=== PATIENT | female | born 1970 | race Caucasian/White ===

== ENCOUNTER → 2020-04-29 17:04 | Outpatient (CLI) | payer OTHER, SELFPAY ==
--- NOTE | ~2020-04-29 | MM_ITS ---
EXAMINATION: MM screening [facility] BI w [facility]ley HISTORY: Screening mammogram TECHNIQUE: Craniocaudal and mediolateral oblique 3-D tomosynthesis images were obtained and synthetic 2-D images were generated. CAD analysis was submitted and interpreted. COMPARISON: 09/12/2018, 09/05/2018 BREAST PARENCHYMAL COMPOSITION: There are scattered areas of fibroglandular density. FINDINGS: There is no evidence of suspicious mass, calcification, or architectural distortion to sugg est malignancy in either breast. There has been no suspicious interval change. IMPRESSION: 1. No mammographic evidence of malignancy. 2. Recommend routine screening mammography in one year. BI-RADS Category 1: Negative Reviewed, dictated and finalized at location A.
== END ==
PROVIDERS: PCP Family Medicine; Visit Provider Physician Assistant
DX: Z12.31 Encounter for screening mammogram for malignant neoplasm of breast (principal)
CPT/HCPCS: 77063; 77067

== ENCOUNTER → 2020-05-24 08:01 | Outpatient (CLI) | payer OTHER, SELFPAY ==
--- NOTE | ~2020-05-24 | US_ITS ---
EXAMINATION: US abdomen limited DATE: 05/24/2020 08:18 INDICATION: Abnormal levels of other serum enzymes TECHNIQUE: Multiple grayscale and Doppler ultrasound images of the abdomen were obtained. COMPARISON: CT, 05/04/2014 FINDINGS: The head and body of the pancreas are normal. The pancreatic tail is obscured by bowel gas. The liver demonstrates increased echogenicity, heterogenous echotexture, and decreased through trans mission. No surface nodularity. Normal hepatopetal flow in the main portal vein. The gallbladder is s urgically absent. The normal postcholecystectomy common bile duct measures 7 mm. IMPRESSION: 1. Diffuse hepatic steatosis Reviewed, dictated and finalized at location B.
== END ==
PROVIDERS: PCP Family Medicine; Visit Provider Family Medicine
DX: R74.8 Abnormal levels of other serum enzymes (principal); K76.0 Fatty (change of) liver, not elsewhere classified
CPT/HCPCS: 76705

== ENCOUNTER 2021-04-27 13:10 | Emergency (ER) | payer OTHER, SELFPAY ==
--- NOTE | 2021-04-27 13:34 | ED.URI ---
HPI - URI/Sore Throat General Chief Complaint: Upper Respiratory Infection Stated Complaint: bilateral ear pain,nasal congestion Time Seen by Provider: 04/27/21 14:00 Source: patient and RN notes reviewed Mode of arrival: ambulatory Limitations: no limitations History of Present Illness HPI Narrative: 50-year-old female presents the concern for nasal congestion, rhinorrhea. She reports bilateral ear pain. She reports that been occurring since or Wednesday. She reports she is taking zssq-eth-njdydsl medications without relief. She reports occasional cough. She denies fever, body aches, sweats. MD elicited complaint: rhinorrhea, nasal congestion and other (ear pain) Related Data Home Medications Medication Instructions Recorded Confirmed aspirin 81 mg tablet,delayed 81 mg PO DAILY 12/23/18 09/16/20 release cholecalciferol (vitamin D3) 50 50 mcg PO DAILY 12/23/18 09/16/20 mcg (2,000 unit) capsule multivitamin 1 tablet PO DAILY 12/23/18 09/16/20 Allergies Allergy/AdvReac Type Severity Reaction Status Date / Time guaifenesin Allergy Unknown blood Verified 09/16/20 16:08 pressure DEXTROMETHORPHAN HBR Allergy Mild reaction Uncoded 09/16/20 16:08 MUCINEX Allergy Mild hand Uncoded 09/16/20 16:08 swelling and itch PSEUDOEPHEDRINE HCL Allergy Mild blood Uncoded 09/16/20 16:08 pressure Review of Systems Review of Systems: CONSTITUTIONAL: Denies malaise, chills, sweats, or fever. EYES: Denies visual changes, redness, or discharge. ENT: Reports rhinorrhea, congestion, sinus pain, otalgia CARDIOVASCULAR: Denies chest pain, palpitations, or edema. RESPIRATORY: Reports cough. Denies dyspnea. GASTROINTESTINAL: Denies abdominal pain, nausea, vomiting, diarrhea SKIN: Denies rash or itching. MUSCULOSKELETAL: Denies myalgia. NEUROLOGIC: Denies headache. All systems reviewed & are unremarkable except as noted in HPI and below PMFSH Past Medical History Medical History Anxiety disorder, unspecified Benign essential HTN Benign thyroid cyst History of miscarriage Surgical History Surgical History History of laparoscopy Hx laparoscopic cholecystectomy Family History Family History Father Hypertension Family history of diabetes mellitus in first degree relative Mother Hypertension Breast cancer Sibling Hypertension Prediabetes Social History Social History (Updated 09/16/20 @ 16:10 by Ketty Humphrey) Social History: Smoking packs per day: 0.5 Smoking cigarettes per day: 10.0 Years smoked: 15 Smoking pack-years: 7.50 Smoking status: Current every day smoker Tobacco type: cigarettes Second hand tobacco smoke exposure: Yes Alcohol intake: current Alcohol use details: rarely Substance use: never Substance use type: does not use Gender identity (if verbalized by the patient): Female Sexual Orientation (if Verbalized by the Patient): Straight or Heterosexual Comments At time of signature, agree with nursing past medical, surgical, social and family history. There is no relevant family history pertinent to the presenting complaint Exam Narrative: GENERAL: Well-appearing, well-nourished, and in no acute distress. HEAD: Normocephalic EYES: PERRLA, conjunctivae clear ENT: Nares clear, turbinates edematous and erythematous, clear discharge. Mucous membranes moist. TM erythematous and bulging; no tragal tenderness. Oropharynx not erythematous without lesions. Tonsils not enlarged and without exudate, no drooling, no hoarseness, no trismus, uvula midline. NECK: Supple. No lymphadenopathy CHEST: Clear to auscultation, breath sounds equal. No wheezing, rhonchi, rales, or stridor. No respiratory distress, speaks in full sentences. HEART: Regular rate and rhythm. No murmur heard. SKIN: Warm, dry, n
[2021-04-27 13:36] VITALS: BP 127/76; PULSE 94; RESP 18; TEMP 37.1; O2SAT 96
== END 2021-04-27 14:22 | disposition home or self-care (01) ==
PROVIDERS: Emergency Provider Nurse Practitioner; PCP Family Medicine
DX: H66.003 Acute suppurative otitis media without spontaneous rupture of ear drum, bilateral (principal); F17.210 Nicotine dependence, cigarettes, uncomplicated; I10 Essential (primary) hypertension; Z79.82 Long term (current) use of aspirin
CPT/HCPCS: 99213; G0463

== ENCOUNTER → 2022-04-20 10:47 | Outpatient (CLI) | payer OTHER, SELFPAY ==
--- NOTE | ~2022-04-20 | US_ITS ---
EXAMINATION: US thyroid DATE: 04/20/2022 11:04 INDICATION: Thyroid nodules. TECHNIQUE: Multiple ultrasound images of the thyroid were obtained. COMPARISON: Ultrasound 08/30/2018, 08/15/2018 FINDINGS: The right thyroid lobe measures 7.1 x 2.3 x 2.5 cm. The left thyroid lobe measures 6.5 x 3.4 x 4.1 c m. The thyroid demonstrates heterogeneous echogenicity. Vascularity is normal. In the right thyroid lobe, there is a 1.4 cm solid, isoechoic, wider than tall nodule with ill-defined margin without echo genic foci (TI-RADS TR3), stable from 08/30/18 when biopsy was benign. In the left thyroid lobe, there is a 4.0 cm solid, isoechoic, wider than tall nodule with ill-defined margin and macrocalcification (TR4), stable from 08/30/18 when biopsy was benign. IMPRESSION: 1. Stable benign thyroid nodules. Reviewed, dictated and finalized at location A.
== END ==
PROVIDERS: PCP Family Medicine; Visit Provider Nurse Practitioner Gerontology
DX: E04.2 Nontoxic multinodular goiter (principal)
CPT/HCPCS: 76536

== ENCOUNTER → 2022-06-09 16:59 | Outpatient (CLI) | payer OTHER, SELFPAY ==
--- NOTE | ~2022-06-09 | XR_ITS ---
EXAMINATION: XR chest 2V Exam Date/Time: 06/09/2022 17:18 CDT HISTORY: J18.9 - Pneumonia, unspecified organism Comparison: CT abdomen pelvis 05/04/2014. RESULT: Lines, tubes, and devices: None. Lungs and pleura: Mild diffuse reticulonodular opacities with cuffing. No focal consolidation. Cardiomediastinal silhouette: Unremarkable. Other: No acute osseous or upper abdominal finding. IMPRESSION: Pulmonary opacities may represent bronchiolitis, as can be seen with atypical infection, asthma, aspi ration, and small airways disease. Reviewed, dictated and finalized at location K. IMPRESSION: Pulmonary opacities may represent bronchiolitis, as can be seen with atypical i nfection, asthma, aspiration, and small airways disease.
== END ==
PROVIDERS: PCP Family Medicine; Visit Provider Nurse Practitioner Gerontology
DX: J18.9 Pneumonia, unspecified organism (principal)
CPT/HCPCS: 71046

== ENCOUNTER → 2022-08-20 16:50 | Outpatient (CLI) | payer OTHER, SELFPAY ==
--- NOTE | ~2022-08-20 | MM_ITS ---
EXAMINATION: MM screening [facility] HISTORY: Screening mammogram TECHNIQUE: Craniocaudal and mediolateral oblique 3-D tomosynthesis images were obtained and synthetic 2-D images were generated. CAD analysis was submitted and interpreted. COMPARISON: 04/29/2020 bilateral screening mammogram 09/12/2018 right diagnostic mammogram 09/05/2018 bilateral screening mammogram BREAST PARENCHYMAL COMPOSITION: There are scattered areas of fibroglandular density. FINDINGS: There is no evidence of suspicious mass, calcification, or architectural distortion to sugg est malignancy in either breast. There has been no suspicious interval change. IMPRESSION: 1. No mammographic evidence of malignancy. 2. Recommend routine screening mammography in one year. BI-RADS Category 1: Negative Reviewed, dictated and finalized at location A.
== END ==
PROVIDERS: PCP Family Medicine; Visit Provider Nurse Practitioner Gerontology
DX: Z12.31 Encounter for screening mammogram for malignant neoplasm of breast (principal)
CPT/HCPCS: 77063; 77067

== ENCOUNTER 2023-08-16 14:34 | Outpatient (CLI) | payer OTHER, SELFPAY ==
--- NOTE | ~2023-08-16 | CT_ITS ---
EXAMINATION:CT lung screening DATE: 08/16/2023 15:03 INDICATION: Personal history of nicotine dependence. Current smoker with 30 pack year history. TECHNIQUE: Computed tomography (CT) of the chest was performed without intravenous contrast. Automate d exposure control and iterative reconstruction technique were employed. The dose-length product (DLP ) was 239.36 mGy-cm. COMPARISON: CT abdomen pelvis 05/04/2014 FINDINGS: There is no pneumonia or pleural effusion. The thyroid is enlarged. The heart size is robert l. No pericardial effusion. There is diffuse hepatic steatosis. There are changes of cholecystectomy. There is severe thoracic spondylosis. IMPRESSION: 1. Lung-RADS category 1: Negative. Continue annual screening with noncontrast low-dose chest CT in 12 months. Reviewed, dictated and finalized at location E. IMPRESSION: 1. Lung-RADS category 1: Negative. Continue annual screening with noncontrast l ow-dose chest CT in 12 months.
== END 2023-08-16 14:35 | disposition home or self-care (01) ==
LOC: ANHIMG 14:34
PROVIDERS: PCP Family Medicine; Visit Provider Family Medicine
DX: Z12.2 Encounter for screening for malignant neoplasm of respiratory organs (principal); Z87.891 Personal history of nicotine dependence
CPT/HCPCS: 71271

== ENCOUNTER 2024-03-24 01:11 | Day surgery (SDC) | payer OTHER, SELFPAY ==
[2023-12-09 17:05] VITALS: BMI 34.1
--- NOTE | 2023-12-20 07:25 | SUR.PREOP ---
Patient called over the weekend reporting she had a bad cough and needed to reschedule. I called the patient at [phone] to discuss getting her rescheduled for her procedure. Patient is rescheduled for 12-6 at 1130.
--- NOTE | 2024-03-09 11:07 | PC.NURSE ---
Spoke with pt. States that nothing has changed with her since last phone conversation regarding medications and health history.
--- OUTSIDE RECORDS SUMMARY | 2024-03-24 01:14 | XMS_ITS | Continuity of Care Document ---
Author Organization [facility] Address [address] [place] [address] [address] [place] [address] Phone Care Team Providers Care Consumer Credit Counselor Name Role Phone Abiola Wang Unavailable Unavailable Procedures Procedure Date Removal Of Chalazion Office/outpatient Visit, Est Office/outpatient Visit, New Advance Directives Directive Yes / No Effective Date File Name No Information Encounters Encounter Description Practice Location Reason(s) For Visit Diagnoses Date Provider Providers Copied on Encounter [facility], [address] [place] [address] [address], [place], [place], [id number], tel:[phone] [facility] No Information 0 Kathleen Barba [address] , [address], [place], [place], [facility], . tel:[phone] Office/outpat ient Visit, [place] [facility], [address] [place] [address] [address], [place], [place], [id number], [place] tel:[phone] [facility] No Information 0 Kathleen Barba [address] , [address], [place], [place], [facility], . tel:[phone] Office/outpat ient Visit, [place] [facility], [address] [place] [address] [address], [place], [place], [id number], [place] tel:[phone] [facility] No Information 0-201 0 Wang Abiola. [address] , [address], [place], [address], [place]. tel:[phone] Referring Provider: Orlin Mendoza, [facility] [address] [place], [address]. tel:[phone] Family History Family Member Type Diagnosis Age At Onset No Information Payers Payer name Insurance type Covered constitution party ID Authoriza tion(s) No Information Social History Type Description Quantity Date Captured Comments Sex Female Smoking Status No Information Chief Complaint And Reason For Visit No Information Reason For Referral Reason For Referral No Information History Of Present Illness Encounter Date Complaint History Of Prese nt Illness No Information Functional Status Date Functional Assessmen t No Information Instructions Date Instruction Additional Infor mation No Information Assessments Type Assessment Date No Information Patient Care Teams Name Effective Dates (start - stop) Status Members No Information
--- OUTSIDE RECORDS SUMMARY | 2024-03-24 01:14 | XMS_ITS | Clinical Summary ---
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 Pulse 112 02/24/2012 6:00 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 Temperature - - Respiratory Rate - - Oxygen Saturation - - Inhaled Oxygen Concentration - - Weight 90.7 kg (200 lb) 02/24/2012 6:00 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 Height - - Body Mass Index - - Plan of Treatment Health Maintenance Due Date Last Done Comments Cervical Cancer Screening Pa p Smear (Age 30 to 64) Every 3 Years 1970 Colorectal Cancer Screening Colonoscopy (10 Years) 1970 Annual Physical 1973 Hepatitis C 1988 DTaP, Tdap and Td Vaccines ( 1 - Tdap) 1989 Hepatitis B Vaccines (1 of 3 - 19+ 3-dose series) 1989 Cervical Cancer Screening Pa p with HPV Testing (Age 30 to 64) Every 5 Years 2000 Cervical Cancer Screening with HPV 2000 Mammogram Screening 2010 Zoster Vaccines (1 of 2) 2020 COVID-19 Vaccine (2023-2 5 season) 2023 Influenza Adult (#1) 2023 Meningococcal B Vaccine Aged Out No l onger eligible based on patient's age to complete this topic Meningococcal Vaccine Aged Out No [place] eligible based on patient's age to complete this topic Pneumococcal Vaccine: Pediat rics (0 to 5 Years) and At-Risk Patients (6 to 64 Years) Aged Out No longer eligible b ased on patient's age to complete this topic RSV Immunizations Under 20 Months Aged Out No longer eligible based on patient's age to complete this topic
--- OUTSIDE RECORDS SUMMARY | 2024-03-24 01:15 | XMS_ITS | Referral Summary ---
Author Organization [address] Address [address] [place] [id number] Care Team Providers Care Nuclear Medicine Tech Name Role Phone Jodi Woodward MD Primary Care Provider Allergies No known active allergies Medications lisinopril-hydr oCHLOROthiazide (ZESTORETIC) 10-12.5 mg per tablet Take 1 tablet by mouth daily 2 Active sertraline (ZOLOFT) 50 mg tablet Take 1 tablet (50 mg total) by mouth daily 2 Active metFORMIN (GLUCOPHAGE) 500 mg tablet 4 Active benzonatate (TESSALON) 200 mg capsuleIndicati ons:Wheezing Take 1 capsule (200 mg total) by mouth 3 (three) times a day as needed for cough keep tessalon out of reach of children, especially children under the age of 10, due to possible serious risk such as if ingested by children under the age of 10. 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 Gender Identity Not on file Sexual Orientation Not on file Last Filed Vital Signs Vital Sign Reading Time Taken Comments Blood Pressure 132/84 10/26/2023 4:26 PM CDT Pulse 106 10/26/2023 4:47 PM CDT Temperature 36.6 C (97.8 F) 10/26/2023 4:26 PM CDT Respiratory Rate 16 10/26/2023 4:26 PM CDT Oxygen Saturation 96% 10/26/2023 4:47 PM CDT Inhaled Oxygen Concentration - - Weight 94.8 kg (209 lb) 10/26/2023 4:26 PM CDT Height 165.1 cm (5' 5 ) 10/26/2023 4:26 PM CDT Body Mass Index 34.78 10/26/2023 4:26 PM CDT Plan of Treatment Not on file Insurance [facility] [id number] [facility] [id number] Care Teams Nuclear Medicine Tech Relationship Specialty Start Date End Date Jodi Woodward MD [address] [facility] [address] [place] [address] PCP - General Family Medicine 02/09/22
--- OUTSIDE RECORDS SUMMARY | 2024-03-24 01:15 | XMS_ITS | Clinical Summary ---
Author Organization [facility] Care Team Providers Care Oxyhydrogen Welder Name Role Phone Unavailable Primary Care Provider Unavailabl e Immunizations Immunization Administration Dates Next Due Covid-19, Mrna, Lnp-s, Pf, 30 Mcg/0.3 Ml Dose (P fizer) 02/12/2021 Social History Tobacco Use Types Packs/Day Years Used Date Smoking Tobacco: Never Assessed Comments Unknown Sex and Gender Information Value Date Recorded Sex Assigned at Not on file Legal Sex Female 9:24 PM CDT Gender Identity Not on file Sexual Orientation Not on file Plan of Treatment Health Maintenance Due Date Last Done Comments Hepatitis C Virus (HCV) Screening 1970 TdaP Immunization 1970 Hepatitis B Immunization (1 of 3 - 19+ 3-dose series) 1989 Pap Smear 11/15/1991 Cervical Cancer Screening (CCS) 2000 HPV/Cotest 2000 Colonoscopy 11/15/2015 Colorectal Cancer Screening 11/15/2015 Cologuard 2020 Immunochemical Fecal Occult Blood 2020 Mammogram 2020 Pneumococcal Immunization (5 0+ years) (1 of 1 - PCV) 2020 Zoster Immunization (1 of 2) 2020 Influenza Immunization (#1) 2023 SARS-COV-2 Immunization ( season) 2023 02/12/2021, 05/28/2020, 05/06/2020 Respiratory Syncytial Virus (RSV) Immunization (Adult) (1 - 1-dose 75+ series) 2045 Meningococcal Immunization (ACWY) Aged Out No longer eligible b ased on patient's age to complete this topic Pneumococcal Immunization Combined Aged Out No longer eligible b ased on patient's age to complete this topic Rotavirus Immunization Aged Out No lo nger eligible based on patient's age to complete this topic
--- OUTSIDE RECORDS SUMMARY | 2024-03-24 01:15 | XMS_ITS | Clinical Summary ---
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 Gender Identity Not on file Sexual Orientation Not on file Obstetrics History Last Filed Vital Signs Vital Sign Reading [...] 10/26/2023 4:26 PM CDT Plan of Treatment Health Maintenance Due Date Last Done Comments Breast Cancer Screening-Mammogram 1970 Cervical Cancer Screening 1970 Colon Cancer Screening-Colonoscopy 1970 Depression Screening 1970 Hepatitis C Screening 1970 DTaP/Tdap/Td Vaccine (1 - Tdap) 1981 Hepatitis B Screening 1988 Regular Well Visit/Exam 18-64 1988 Zoster Vaccine (1 of 2) 2020 Covid-19 Vaccine (4 - 2023-2 5 season) 2023 02/12/2021, 05/28/2020, 05/06/2020 Influenza Vaccine (#1) 2023 Pneumococcal vaccine <65 Aged Out No longer eligible based on patient's age to complete this topic Insurance [facility] [id number] [facility] [id number] Care Teams Sales Assistant Relationship Specialty Start Date End Date Jodi Woodward MD [address] [facility] [address] [place] [address] PCP - General Family Medicine 02/09/22
[2024-03-24 09:45] VITALS: BP 122/78; PULSE 88; RESP 18; TEMP 35.9; O2SAT 97; BMI 34.4
[2024-03-24 10:05] LABS: Glucose Point of Care 110 mg/dl (65-105)
[2024-03-24] MEDS: LACTATED RINGERS 1,000 ML 150 ML IV CONT (10:07)
--- NOTE | 2024-03-24 10:07 | P.PNAN_ITS ---
Anes - Initial Pre Proc Eval Procedure: Operation Date: 03/24/24 11:30 Proposed Procedures p Screening Colonoscopy - Carlos Llamas MD Date/Time: 03/24/24 10:07 Surgeon: Carlos Llamas MD Pre Op Diagnosis: neoplasm screening Patient Data Age: 53 Gender: F Height: 1.65 m Weight: 93.8 kg Last Vital Signs Temp 35.9 C L 03/24/24 09:45 Pulse 88 03/24/24 09:45 Resp 18 03/24/24 09:45 BP 122/78 03/24/24 09:45 Pulse Ox 97 03/24/24 09:45 O2 Del Method Room Air 03/24/24 09:45 Allergies Allergy/AdvReac Type Severity Reaction Status Date / Time guaifenesin Allergy Unknown blood Verified 03/24/24 09:51 pressure DEXTROMETHORPHAN HBR Allergy Mild reaction Uncoded 03/24/24 09:51 MUCINEX Allergy Mild hand Uncoded 03/24/24 09:51 swelling and itch PSEUDOEPHEDRINE HCL Allergy Mild blood Uncoded 03/24/24 09:51 pressure Home Medications ?Medication ?Instructions ?Recorded ?Confirmed ?Type aspirin 81 mg tablet,delayed 81 mg PO DAILY 12/23/18 03/24/24 History release (Adult Low Dose Aspirin) cholecalciferol (vitamin D3) 50 50 mcg PO DAILY 12/23/18 03/24/24 History mcg (2,000 unit) capsule multivitamin 1 tablet PO DAILY 12/23/18 01/14/24 History lisinopril 10 See Rx Instructions .Route 08/09/23 03/24/24 Rx mg-hydrochlorothiazide 12.5 mg .COMPLEX #90 tabs tablet empagliflozin 10 mg tablet 10 mg PO DAILY 01/14/24 03/09/24 History (Jardiance) sertraline 50 mg tablet See Rx Instructions .Route 01/14/24 03/24/24 Rx .COMPLEX #90 tabs metformin 500 mg tablet See Rx Instructions .Route 01/20/24 03/24/24 Rx .COMPLEX #90 tabs Laboratory Tests 03/24/24 09:58 POC Capillary Glucose 110 H mg/dl (65-105) Patient hx anesthesia problems: none Family hx anesthesia problems: none Results Review: All pre-operative results and documents have been reviewed as part of the pre- operative evaluation. [facility] Past Medical History Medical History Diabetes type 2, controlled Euthyroid goiter Thyroid nodule Tobacco abuse Acute low back pain Allergic rhinitis due to pollen Dietary counseling and surveillance (02/14/18) Erythematous rash Fibroma of skin IFG (impaired fasting glucose) Keratotic lesion Nicotine dependence, unspecified, uncomplicated Other idiopathic scoliosis, thoracic region Physical exam, annual Polycythemia SI (sacroiliac) joint dysfunction Stress at home Vitamin D deficiency Thyroid nodule Excessive daytime sleepiness History of miscarriage Benign essential HTN Benign thyroid cyst Anxiety disorder, unspecified Surgical History Surgical History History of laparoscopy Hx laparoscopic cholecystectomy Family History Family History Father Hypertension Family history of diabetes mellitus in first degree relative Mother Hypertension Breast cancer Sibling Hypertension Prediabetes Social History Social History Social History: Smoking packs per day: 0.5 Smoking cigarettes per day: 10.0 Years smoked: 15 Smoking pack-years: 7.50 Smoking status: Current every day smoker Tobacco type: cigarettes Second hand tobacco smoke exposure: Yes Alcohol intake: current Alcohol use details: rarely Substance use: never Substance use type: does not use Do You Feel Safe in your Home?: Yes Lack of Transportation: No Lack of Food: Never True Current Housing: I Have Housing Concerned About Future Housing: No Difficulty Paying Gas/Electric Bills: No Difficulty Paying for Meds: No Currently Unemployed: No Education: Decline to Answer Difficulty w/ Childcare or Family Care: No Living arrangements: with family Additional living arrangements comments: Pt children live with her. 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 Gender identity (if verbalized by the patient): Female Sexual Orientation (if Verbalized by the Patient): Straight or Heterosexual Spiritual care concerns: No Anes - Eval Final PreProcedure Day of Procedure 03/24/24 10:07 Patient weight: obese Heart: regular rate and rhythm Lungs: clear to auscultation Airway: Mallampati scale class II Neurological: alert and oriented Last oral intake: >/= 8 hours ASA classification: III Emergent: no Anesthetic plan: proceed Anesthesia type and monitoring: general GIVS and standard monitoring Results Review: All pre-operative results and documents have been reviewed as part of the pre- operative evaluation. Informed Consent: The patient's anesthetic plan and its attendant risks and benefits were discussed with the patient/family/POA. Questions were solicited and answers provided to the satisfaction of the patient/family/POA.
--- NOTE | 2024-03-24 10:17 | PM.HPGS ---
History of Present Illness History of Present Illness Consent: Risks, benefits, and alternatives have been discussed and questions answered. Patient agrees to proceed with procedure. Chief complaint: neoplasm screening Narrative: Yari Carpenter is a 53 year old female here for first screening colonoscopy Review of Systems Review of Systems: All systems reviewed & are unremarkable except as noted in HPI and below PMFSH Past Medical History Medical History Diabetes type 2, controlled Euthyroid goiter Thyroid nodule Tobacco abuse Acute low back pain Allergic rhinitis due to pollen Dietary counseling and surveillance (02/14/18) Erythematous rash Fibroma of skin IFG (impaired fasting glucose) Keratotic lesion Nicotine dependence, unspecified, uncomplicated Other idiopathic scoliosis, thoracic region Physical exam, annual Polycythemia SI (sacroiliac) joint dysfunction Stress at home Vitamin D deficiency Thyroid nodule Excessive daytime sleepiness History of miscarriage Benign essential HTN Benign thyroid cyst Anxiety disorder, unspecified Surgical History Surgical History History of laparoscopy Hx laparoscopic cholecystectomy Family History Family History Father Hypertension Family history of diabetes mellitus in first degree relative Mother Hypertension Breast cancer Sibling Hypertension Prediabetes Social History Social History Social History: Smoking packs per day: 0.5 Smoking cigarettes per day: 10.0 Years smoked: 15 Smoking pack-years: 7.50 Smoking status: Current every day smoker Tobacco type: cigarettes Second hand tobacco smoke exposure: Yes Alcohol intake: current Alcohol use details: rarely Substance use: never Substance use type: does not use Do You Feel Safe in your Home?: Yes Lack of Transportation: No Lack of Food: Never True Current Housing: I Have Housing Concerned About Future Housing: No Difficulty Paying Gas/Electric Bills: No Difficulty Paying for Meds: No Currently Unemployed: No Education: Decline to Answer Difficulty w/ Childcare or Family Care: No Living arrangements: with family Additional living arrangements comments: Pt children live with her. Occupation/Education: occupation Additional occupation/education comments: [employer] Gender identity (if verbalized by the patient): Female Sexual Orientation (if Verbalized by the Patient): Straight or Heterosexual Spiritual care concerns: No Meds Home Medications and Allergies Home Medications ?Medication ?Instructions ?Recorded ?Confirmed ?Type aspirin 81 mg tablet,delayed 81 mg PO DAILY 12/23/18 03/24/24 History release (Adult Low Dose Aspirin) cholecalciferol (vitamin D3) 50 50 mcg PO DAILY 12/23/18 03/24/24 History mcg (2,000 unit) capsule multivitamin 1 tablet PO DAILY 12/23/18 01/14/24 History lisinopril 10 See Rx Instructions .Route 08/09/23 03/24/24 Rx mg-hydrochlorothiazide 12.5 mg .COMPLEX #90 tabs tablet empagliflozin 10 mg tablet 10 mg PO DAILY 01/14/24 03/09/24 History (Jardiance) sertraline 50 mg tablet See Rx Instructions .Route 01/14/24 03/24/24 Rx .COMPLEX #90 tabs metformin 500 mg tablet See Rx Instructions .Route 01/20/24 03/24/24 Rx .COMPLEX #90 tabs Allergies Allergy/AdvReac Type Severity Reaction Status Date / Time guaifenesin Allergy Unknown blood Verified 03/24/24 09:51 pressure DEXTROMETHORPHAN HBR Allergy Mild reaction Uncoded 03/24/24 09:51 MUCINEX Allergy Mild hand Uncoded 03/24/24 09:51 swelling and itch PSEUDOEPHEDRINE HCL Allergy Mild blood Uncoded 03/24/24 09:51 pressure Vital Signs Vital Signs - 24 hr 03/24/24 09:45 Temperature 96.6 F L Pulse Rate 88 Respiratory Rate 18 Blood Pressure 122/78 Pulse Oximetry 97 Oxygen Delivery Room Air Exam Const: General: comfortable and no acute distress HENMT: Face/Nose/Sinus: Normal nares present Eyes: General: appearance normal, both eyes and all related structures Neck: Neck: no JVD Resp: Auscultation: clear to auscultation bilaterally Cardio: Rate: regular rate Rhythm: regular rhythm GI: Inspection: non-distended GI Palp: Yes Soft to palpation Skin: General skin exam: normal color Neuro: General: gait normal Speech: normal speech Extrem: General: normal to inspection Psych: Mental Status: mental status grossly normal Assessment and Plan Assessment and plan (1) Colon cancer screening: Code(s): Z12.11 - Encounter for screening for malignant neoplasm of colon Status: Acute Assessment and Plan: colonoscopy
[2024-03-24 10:33] VITALS: BP 108/64; PULSE 79; RESP 18; O2SAT 94
[2024-03-24 10:43] VITALS: BP 96/57; PULSE 79; RESP 20; O2SAT 94
[2024-03-24 10:53] VITALS: BP 106/70; PULSE 77; RESP 20; O2SAT 98
== END 2024-03-24 11:00 | disposition home or self-care (01) ==
PROVIDERS: PCP Family Medicine; Visit Provider Internal Medicine Gastroenterology
PROC: 0DJD8ZZ Inspection of Lower Intestinal Tract, Via Natural or Artificial Opening Endoscopic (ICD-10-PCS; CPT 45378; principal; 2024-03-24 11:30)
DX: Z12.11 Encounter for screening for malignant neoplasm of colon (principal); K57.30 Diverticulosis of large intestine without perforation or abscess without bleeding; K64.8 Other hemorrhoids; E11.9 Type 2 diabetes mellitus without complications; Z79.84 Long term (current) use of oral hypoglycemic drugs; F17.210 Nicotine dependence, cigarettes, uncomplicated; E66.9 Obesity, unspecified; Z68.34 Body mass index [BMI] 34.0-34.9, adult
CPT/HCPCS: 45378; 82948; J2704; J7120

== ENCOUNTER 2024-08-16 14:02 | Outpatient (CLI) | payer OTHER, SELFPAY ==
--- NOTE | ~2024-08-16 | CT_ITS ---
CT Scan of the Chest without Contrast: Clinical Indication: Lung cancer screening, nicotine dependence Technique: Contiguous sections were acquired throughout the chest without intravenous contrast. Dose reduction technique was used on this scan by utilizing automated exposure control and iterative recon struction technique. The dose-length product (DLP) was 260.82 mGy-cm. COMPARISON: 08/16/2023 Findings: Stable enlarged left thyroid lobe. There is no evidence of any significant mediastinal, hilar or axillary lymphadenopathy. The mediastin al soft tissues appear normal. There is no evidence of pleural or pericardial effusion. The lungs are clear. No pulmonary nodules or infiltrates are noted. Images through the upper abdomen reveal diffuse fatty infiltration of the liver. Impression: Lung RADS 1: Negative. 12 month follow-up screening CT advised. Reviewed, dictated and finalized at [facility]. Impression: Lung RADS 1: Negative. 12 month follow-up screening CT advised.
--- OUTSIDE RECORDS SUMMARY | 2024-08-16 14:18 | XMS_ITS | Referral Summary ---
Author Organization [facility] [address] Address [address] [place] [id number] Care Team Providers Care Intelligence Senior Sergeant Name Role Phone Jodi Woodward MD Primary Care Provider Allergies Active Allergy Reactions Criticality Noted Date Comments Guaifenesin Swelling Medium 04/13/2024 Finger swelling, and itching Medications lisinopril-hydr oCHLOROthiazide (ZESTORETIC) 10-12.5 mg per tablet Take 1 tablet by mouth daily 2 Active sertraline (ZOLOFT) 50 mg tablet Take 1 tablet (50 mg total) by mouth daily 2 Active metFORMIN (GLUCOPHAGE) 500 mg tablet 4 Active benzonatate (TESSALON) 200 mg capsule Take 1 capsule (200 mg total) by mouth 3 (three) times a day as needed for cough keep tessalon out of reach of children, especially children under the age of 10, due to possible serious risk such as if ingested by children under the age of 10. 30 capsule 5 Active albuterol HFA (PROVENTIL HFA,VENTOLIN HFA,PROAIR HFA) 90 mcg/actuation inhaler Inhale 2 puffs every 6 (six) hours as needed for wheezing 1 each 5 04/14/19 26 Active inhalational spacing device (Aerochamber MV) spacer Use with albuterol inhaler 1 each 5 Active methylPREDNISol one (MEDROL DOSEPACK) 4 mg Dosepack Take 6 tabs on day 1, reduce dose by 1 daily until prescription is complete. 1 packet Active Active Problems No known active problems Social History Tobacco Use Types Packs/Day Years Used Date Smoking Tobacco: Never Assessed Comments Unknown Sex and Gender Information Value Date Recorded Sex Assigned at Not on file Legal Sex Female 11:34 PM RELIGIOUS RITUAL SLAUGHTERER Gender Identity Not on file Sexual Orientation Not on file Last Filed Vital Signs Vital Sign Reading Time Taken Comments Blood Pressure 132/72 04/13/2024 3:35 PM RELIGIOUS RITUAL SLAUGHTERER Pulse 100 04/13/2024 3:50 PM RELIGIOUS RITUAL SLAUGHTERER Temperature 36.8 C (98.3 F) 04/13/2024 3:50 PM RELIGIOUS RITUAL SLAUGHTERER Respiratory Rate 28 04/13/2024 3:50 PM RELIGIOUS RITUAL SLAUGHTERER Oxygen Saturation 94% 04/13/2024 3:50 PM RELIGIOUS RITUAL SLAUGHTERER Inhaled Oxygen Concentration - - Weight 93 kg (205 lb) 04/13/2024 3:35 PM RELIGIOUS RITUAL SLAUGHTERER Height 165 cm (5' 4.96) 04/13/2024 3:35 PM RELIGIOUS RITUAL SLAUGHTERER Body Mass Index 34.15 04/13/2024 3:35 PM RELIGIOUS RITUAL SLAUGHTERER Plan of Treatment Not on file Insurance [facility] [id number] [facility] [id number] Care Teams Intelligence Senior Sergeant Relationship Specialty Start Date End Date Jodi Woodward MD [address] [facility] [address] [place] [id number] PCP - General Family Medicine 02/09/22
--- OUTSIDE RECORDS SUMMARY | 2024-08-16 14:18 | XMS_ITS | Clinical Summary ---
Author Organization [facility] Care Team Providers Care Black Top Paver Operator Name Role Phone Unavailable Primary Care Provider [...] Cervical Cancer Screening (CCS) 2000 HPV/Cotest 2000 Cologuard 11/15/2015 Colonoscopy 11/15/2015 Colorectal Cancer Screening 11/15/2015 Immunochemical Fecal Occult Blood 11/15/2015 Pneumococcal Immunization (5 0+ years) (1 of 1 - PCV) 2020 Zoster Immunization (1 of 2) 2020 SARS-COV-2 Immunization (4 - 2023- season) 2023 02/12/2021, 05/28/2020, 05/06/2020 Influenza Immunization (#1) 2024 Respiratory Syncytial Virus (RSV) Immunization (Adult) (1 - 1-dose 75+ series) 2045 Human Papillomavirus (HPV) Immunization Aged Out No longer eligible b ased on patient's age to complete this topic Meningococcal Immunization (ACWY) Aged Out No longer eligible b ased on patient's age to complete this topic Rotavirus Immunization Aged Out No lo nger eligible based on patient's age to complete this topic
--- OUTSIDE RECORDS SUMMARY | 2024-08-16 14:18 | XMS_ITS | Clinical Summary ---
Author Organization [facility] [place] [address] Address [address] [place] [id number] Care Team Providers Care Rag Collector Name Role Phone Jodi Woodward MD Primary [...] on file Legal Sex Female 11:34 PM CONSOLIDATOR Gender Identity Not on file Sexual Orientation Not on file Obstetrics History Last Filed Vital Signs Vital Sign Reading Time Taken Comments Blood Pressure 132/72 04/13/2024 3:35 PM CONSOLIDATOR Pulse 100 04/13/2024 3:50 PM CONSOLIDATOR Temperature 36.8 C (98.3 F) 04/13/2024 3:50 PM CONSOLIDATOR Respiratory Rate 28 04/13/2024 3:50 PM CONSOLIDATOR Oxygen Saturation 94% 04/13/2024 3:50 PM CONSOLIDATOR Inhaled Oxygen Concentration - - Weight 93 kg (205 lb) 04/13/2024 3:35 PM CONSOLIDATOR Height 165 cm (5' 4.96) 04/13/2024 3:35 PM CONSOLIDATOR Body Mass Index 34.15 04/13/2024 3:35 PM CONSOLIDATOR Plan of Treatment Health Maintenance Due Date Last Done Comments Breast Cancer Screening-Mammogram 1970 Cervical Cancer Screening 1970 Colon Cancer Screening-Colonoscopy 1970 Depression Screening 1970 Hepatitis C Screening 1970 DTaP/Tdap/Td Vaccine (1 - Tdap) 1981 Hepatitis B Screening 1988 Regular Well Visit/Exam 18-64 1988 Zoster Vaccine (1 of 2) 2020 Covid-19 Vaccine (4 - 2023-2 5 season) 2023 02/12/2021, 05/28/2020, 05/06/2020 Influenza Vaccine (Season Ended) 2024 Pneumococcal vaccine <65 Aged Out No longer eligible based on patient's age to complete this topic Insurance [facility] [id number] [facility] [id number] Care Teams Rag Collector Relationship Specialty Start Date End Date Jodi Woodward MD [address] [facility] [address] [place] [address] PCP - General Family Medicine 02/09/22
--- OUTSIDE RECORDS SUMMARY | 2024-08-16 14:18 | XMS_ITS | Continuity of Care Document ---
Author Organization [facility] Address [address] [place] [address] [address] [place] [address] Phone Care Team Providers Care Java Developer Name Role Phone Abiola Wang Unavailable Unavailable Procedures Procedure Date Removal Of Chalazion Office/outpatient Visit, Est Office/outpatient Visit, New Advance Directives Directive Yes / No Effective Date File Name No Information Encounters Encounter Description Practice Location Reason(s) For Visit Diagnoses Date Provider Providers Copied on Encounter [facility], [address] [place] [address] [address], [place], [place], [id number], tel:[phone] [facility] No Information 0 Kathleen Barba [address] , [address], [place], [place], [facility], . tel:[phone] Office/outpat ient Visit, Est [facility], [address] [place] [address] [address], [place], [place], [id number], [place] tel:[phone] [facility] No Information 0 Kathleen Barba [address] , [address], [place], [place], [facility], . tel:[phone] Office/outpat ient Visit, [place] [facility], [address] [place] [address] [address], [place], [place], [id number], [place] tel:[phone] [facility] No Information 0-201 0 Wang Abiola. [address] , [address], [place], [address], [place]. tel:[phone] Referring Provider: Orlin Mendoza, [facility] [address] [place], [address]. tel:[phone] Family History Family Member Type Diagnosis Age [...]
--- OUTSIDE RECORDS SUMMARY | 2024-08-16 14:18 | XMS_ITS | Clinical Summary ---
Author Organization [facility] Address [address] [place] [address] Care Team Providers Care Day Habilitation Specialist Name Role Phone Unavailable Primary Care Provider [...] Comments Blood Pressure 100/62 02/24/2012 6:00 PM RIG OPERATOR Pulse 112 02/24/2012 6:00 PM RIG OPERATOR Temperature - - Respiratory Rate - - Oxygen Saturation - - Inhaled Oxygen Concentration - - Weight 90.7 kg (200 lb) 02/24/2012 6:00 PM RIG OPERATOR Height - - Body Mass Index [...] Screening with HPV 2000 Mammogram Screening 2010 Pneumococcal Vaccine: 50+ Ye ars (1 of 1 - PCV) 2020 Zoster Vaccines (1 of 2) 2020 COVID-19 Vaccine ( - 2023-2 5 season) 2023 Meningococcal B Vaccine Aged Out No l onger eligible based on patient's age to complete this topic Meningococcal Vaccine Aged Out No [place] eligible based on patient's age to complete this topic RSV Immunizations Under 20 Months Aged Out No longer eligible based on patient's age to complete this topic
== END 2024-08-16 14:03 | disposition home or self-care (01) ==
PROVIDERS: PCP Family Medicine; Visit Provider Student in an Organized Health Care Education/Training Program
DX: Z12.2 Encounter for screening for malignant neoplasm of respiratory organs (principal); Z87.891 Personal history of nicotine dependence
CPT/HCPCS: 71271